=== PATIENT | female | born 1975 | race Asian ===

== ENCOUNTER 2016-09-01 07:15 | Emergency (ER) | payer OTHER ==
[~2016-09-01] VITALS: Ht 162.6 cm; Wt 59.0 kg
[2016-09-01 07:25] VITALS: BP 136/102
--- NOTE | 2016-09-01 07:28 | NUR ---
Patient to bed 05.
--- NOTE | 2016-09-01 07:30 | NUR ---
PT PRESENTS TO ER FOR REFILL OF PSYCH MEDICATIONS, HALDOL, LORAZEPAM, ZOLOFT. PT STATES SHE WOULD ALSO LIKE A PRESCRIPTION FOR TEMAZEPAM, IT WORKS BETTER THAN HER ZOLOFT. HX DEPRESSION, ANXIETY, HTN. DENIES N/V/D; SKIN IS PINK/WARM/DRY; AAOX4 WITH EVEN AND STEADY GAIT; LUNGS CLEAR BL; HR EVEN AND REGULAR; PT DENIES ANY FEVER, CP, SOB, OR COUGH AT THIS TIME; PATIENT STATES PAIN OF 0/10 AT THIS TIME; VSS; PATIENT POSITIONED FOR COMFORT; HOB ELEVATED; BEDRAILS UP X2; BED DOWN. ER MD MADE AWARE OF PT STATUS.
--- NOTE | 2016-09-01 07:45 | NUR ---
Dr. Valerio evaluating patient at bedside.
--- NOTE | 2016-09-01 07:55 | NUR ---
PATIENT ELOPED FROM FACILITY. DISCHARGE INSTRUCTIONS NOT GIVEN TO PATIENT. DR. NELSON NOTIFIED.
== END 2016-09-01 07:55 | disposition left against medical advice (07) ==
LOC: MED 07:15
DX: F99 Mental disorder, not otherwise specified (principal); I10 Essential (primary) hypertension; J45.909 Unspecified asthma, uncomplicated; F32.9 Major depressive disorder, single episode, unspecified; F41.9 Anxiety disorder, unspecified
CPT/HCPCS: 99284